=== PATIENT | male | born 1960 | race Caucasian/White ===

== ENCOUNTER 2023-03-16 13:30 | Outpatient (CLI) | payer BC, SELFPAY ==
--- NOTE | ~2023-03-16 | CT_ITS ---
EXAMINATION: CT abdomen pelvis wo con DATE: 03/16/2023 13:51 INDICATION: Kidney stones. TECHNIQUE: Computed tomography (CT) of the abdomen and pelvis was performed without intravenous contr ast. Automated exposure control and iterative reconstruction technique were employed. The dose-length product was 466.04 mGy-cm. COMPARISON: None. FINDINGS: The visualized portions of the lung bases demonstrate mild atelectasis. No pleural effusion . There is mild bilateral gynecomastia. The heart size is normal. There are coronary artery calcifica tions. No pericardial effusion. There is diffuse hepatic steatosis. There is a 2.1 cm cyst in the isidra er. The gallbladder, spleen, pancreas, adrenal glands, and kidneys are normal. There is no urolithias is. The prostate is mildly enlarged. There is a left inguinal hernia containing fat. There is diverti culosis of the colon without evidence of diverticulitis. There are no dilated loops of bowel. The wally endix is not visualized. There is mild aortic atherosclerosis. There are no pathologically enlarged l ymph nodes. There is no free intraperitoneal fluid. There is mild subcutaneous fat stranding in anter ior abdominal wall, likely inflammation or scarring. There is mild thoracic spondylosis and moderate lumbar spondylosis. IMPRESSION: 1. No urolithiasis. 2. Diffuse hepatic steatosis. 3. Left inguinal hernia containing fat. Reviewed, dictated and finalized at location E.
== END 2023-03-16 13:31 | disposition home or self-care (01) ==
LOC: ANHIMG 13:34
PROVIDERS: Visit Provider Urology
DX: Z87.442 Personal history of urinary calculi (principal); K76.0 Fatty (change of) liver, not elsewhere classified; K40.90 Unilateral inguinal hernia, without obstruction or gangrene, not specified as recurrent
CPT/HCPCS: 74176